=== PATIENT | female | born 1985 | race Caucasian/White ===

== ENCOUNTER 2017-06-06 09:08 | Emergency (ER) | payer BC ==
[2017-06-06] MEDS ORDERED: ZOFRAN IV ONE (11:32)
[2017-06-06] MEDS ORDERED: NACL 0.9% 1000 ML 1,000 ML IV ONE (11:33)
--- NOTE | 2017-06-06 12:03 | Cat Scan Report ---
CT HEAD WITHOUT CONTRAST: HISTORY: Headache. Serial contiguous axial images were obtained through the cranium. Intravenous contrast material was not administered. The ventricles are normal in size and appearance. There is no mass effect or midline shift. No areas of abnormally increased or decreased attenuation are seen. No mass lesion is seen. The mastoid air cells and visualized portions of the sinuses are normal. IMPRESSION: Cranial CT scan within normal limits.
[2017-06-06] MEDS ORDERED: TORADOL IV ONE (12:26)
[2017-06-06] MEDS ORDERED: BENADRYL IV ONE (12:26)
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
[2017-06-06] MEDS ORDERED: DECADRON IV ONE (13:38)
[2017-06-06] MEDS ORDERED: ROCEPHIN/NS 1 GM/50 ML 1 GM/50 ML BAG IV ONE (13:38)
[2017-06-06 14:22] LABS: Basophils % (Auto) 0.2 % (0.0-1.8); Hematocrit 33.5 % (30.3-42.9); Hemoglobin 10.7 gm/dl (10.1-14.3); Mean Corpuscular HGB Conc 32 % (30-34); Mean Corpuscular Volume 80 fl (79-97); Platelet Count 344 K/mm3 (140-440); Red Blood Count 4.19 M/mm3 (3.65-5.03); White Blood Count 10.2 K/mm3 (4.5-11.0)
[2017-06-06 14:25] LABS: Mean Corpuscular Hemoglobin 26 pg (28-32); Red Cell Distribution Width 20.6 % (13.2-15.2)
[2017-06-06] MEDS ORDERED: REGLAN IV ONE (14:31)
[2017-06-06] MEDS ORDERED: DILAUDID IV ONE (14:31)
[2017-06-06 14:48] LABS: Alanine Aminotransferase 8 units/L (7-56); Albumin 3.9 g/dL (3.9-5); Albumin/Globulin Ratio 1.5 %; Alkaline Phosphatase 47 units/L (35-129); Anion Gap 15 mmol/L; BUN/Creatinine Ratio 13; Bilirubin,Total < 0.20 mg/dL (0.1-1.2); Blood Urea Nitrogen 8 mg/dL (7-17); Calcium 8.5 mg/dL (8.4-10.2); Carbon Dioxide 27 mmol/L (22-30); Chloride 105.5 mmol/L (98-107); Glucose 98 mg/dL (65-100); Potassium 4.2 mmol/L (3.6-5.0); Sodium 143 mmol/L (137-145); Total Protein 6.5 g/dL (6.3-8.2)
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
[2017-06-06 17:45] VITALS: BP 126/55
== END 2017-06-06 18:30 | disposition home or self-care (01) ==
LOC: ED 09:08
DX: R51 Headache (principal); T78.40XA Allergy, unspecified, initial encounter; G89.29 Other chronic pain
CPT/HCPCS: 36415; 62273; 70450; 80053; 82140; 85025; 87040; 96365; 96375; 99284; J0696; J1100; J1170; J1200; J1885; J2405; J2765; J7030

== ENCOUNTER 2017-06-09 01:51 | Emergency (ER) | payer BC ==
[2017-06-09] MEDS ORDERED: TYLENOL ONE (02:15)
[2017-06-09] MEDS ORDERED: TYLENOL PO ONE (02:15)
[2017-06-09] MEDS ORDERED: TORADOL ONE (04:24)
[2017-06-09] MEDS ORDERED: TORADOL IM ONE (04:26)
[2017-06-09 07:44] LABS: Basophils % (Auto) 0.2 % (0.0-1.8); Eosinophils % (Auto) 0.6 % (0.0-4.3); Hematocrit 37.3 % (30.3-42.9); Mean Corpuscular HGB Conc 32 % (30-34); Mean Corpuscular Volume 79 fl (79-97); Platelet Count 334 K/mm3 (140-440); Red Blood Count 4.71 M/mm3 (3.65-5.03); White Blood Count 14.7 K/mm3 (4.5-11.0)
[2017-06-09 07:48] LABS: Mean Corpuscular Hemoglobin 26 pg (28-32); Red Cell Distribution Width 20.7 % (13.2-15.2)
[2017-06-09 08:41] LABS: Bilirubin,Urine NEG (Negative); Blood,Urine NEG (Negative); Ketones,Urine NEG (Negative); Leukocyte Esterase,Urine NEG (Negative); Nitrite,Urine NEG (Negative); Protein,Urine <15 mg/dL mg/dL (Negative); Urobilinogen,Urine < 2.0 mg/dL (<2.0)
[2017-06-09 08:42] VITALS: BP 140/98
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
[2017-06-09 09:06] LABS: Alanine Aminotransferase 63 units/L (7-56); Albumin/Globulin Ratio 1.3 %; Alkaline Phosphatase 57 units/L (35-129); Anion Gap 24 mmol/L; BUN/Creatinine Ratio 15; Blood Urea Nitrogen 9 mg/dL (7-17); Calcium 9.1 mg/dL (8.4-10.2); Carbon Dioxide 21 mmol/L (22-30); Chloride 102.2 mmol/L (98-107); Glucose 120 mg/dL (65-100); Potassium 4.3 mmol/L (3.6-5.0); Sodium 143 mmol/L (137-145); Total Protein 7.1 g/dL (6.3-8.2)
[2017-06-09 09:07] LABS: Bilirubin,Direct < 0.2 mg/dL (0-0.2)
[2017-06-09] MEDS ORDERED: DECADRON IM ONE (09:47)
== END 2017-06-09 10:20 | disposition home or self-care (01) ==
LOC: ED 01:51
DX: L30.9 Dermatitis, unspecified (principal); G89.29 Other chronic pain
CPT/HCPCS: 36415; 80048; 80074; 81001; 81025; 82140; 85025; 96372; 99283; J1100; J1885